=== PATIENT | female | born 1995 | race Two or more races ===

== ENCOUNTER 2024-10-20 15:57 | Emergency (ER) | payer OTHER ==
[~2024-10-20] VITALS: Ht 170.2 cm; Wt 59.0 kg
[2024-10-20] MEDS ORDERED: TROKENDI XR25 MG (16:20)
[2024-10-20] MEDS ORDERED: QULIPTA60 MG (16:21)
[2024-10-20] MEDS ORDERED: LIDOCAINE HCL 1% 10ML VIAL PERCUT ONE (17:30)
[2024-10-20] MEDS ORDERED: TETANUS & DIPHTHERIA TOX,ADULT 0.5 ML VIAL IM ONE (17:30)
[2024-10-20] MEDS ORDERED: ACETAMINOPHEN 500 MG GEL..CAP PO ONE ×2 (17:30→17:57)
[2024-10-20] MEDS ORDERED: ACETAMINOPHEN WITH CODEINE 1 UDTAB TABLET PO ONE ×2 (17:45→23:00)
[2024-10-20] MEDS ORDERED: TETANUS DIPHTHERIA TOX. ADSOR 5 ML VIAL IM ONE (17:57)
[2024-10-20] MEDS ORDERED: CEFTRIAXONE SODIUM 1,000 MG VIAL ONE (20:37)
[2024-10-20] MEDS ORDERED: LIDOCAINE HCL 1% 10ML VIAL ONE (20:38)
[2024-10-20] MEDS ORDERED: CEFTRIAXONE SODIUM 1,000 MG VIAL IM ONE (20:45)
[2024-10-20] MEDS ORDERED: BACITRACIN-NEOMYCIN-POLYMYXIN 0.9 GM PACKET TOP ONE (21:47)
== END 2024-10-20 23:51 | disposition home or self-care (01) ==
LOC: ER 15:59
DX: S61.211A Laceration without foreign body of left index finger without damage to nail, initial encounter (principal); W31.89XA Contact with other specified machinery, initial encounter; Y93.89 Activity, other specified; Y92.89 Other specified places as the place of occurrence of the external cause
CPT/HCPCS: 90471; 90714; J1670